=== PATIENT | male | born 1970 | race Hispanic/Latino ===

== ENCOUNTER 2021-10-15 12:31 | Inpatient (IN) | payer MEDICAID ==
[~2021-10-15] VITALS: Ht 175.3 cm; Wt 101.0 kg
[2021-10-15 13:11] LABS: BASOPHILS % (AUTO) 0.6 % (0.0-5.0); EOSINOPHILS % (AUTO) 5.6 % (0.0-8.0); HEMATOCRIT 37.6 % (42-54); LYMPHOCYTES % (AUTO) 24.3 % (21.0-51.0); MEAN CORPUSCULAR HEMOGLOBIN 31.4 pg (27.0-33.0); MEAN CORPUSCULAR HGB CONC 35.4 g/dL (32.0-36.0); MEAN CORPUSCULAR VOLUME 88.9 fL (79-99); MONOCYTES % (AUTO) 14.9 % (3.0-13.0); NEUTROPHILS % (AUTO) 54.4 % (40.0-77.0); PLATELET COUNT (AUTO) 111 K/uL (130-400); RED BLOOD CELL COUNT(AUTO) 4.23 MIL/uL (4.50-6.20); RED CELL DISTRIBUTION WIDTH 13.5 % (11.0-15.5); WHITE BLOOD COUNT (AUTO) 4.8 K/uL (4.8-10.8)
[2021-10-15 13:18] LABS: CREATININE 0.8 mg/dL (0.5-1.5); POTASSIUM 3.1 mmol/L (3.5-5.1)
[2021-10-15 13:23] LABS: ALBUMIN 2.4 g/dL (3.5-5.0); TOTAL PROTEIN, SERUM 7.7 g/dL (6.0-8.3)
[2021-10-15] MEDS ORDERED: 0.9%NACL 1000ML 1,000 ML IV ONE (14:00)
[2021-10-15] MEDS ORDERED: INSULIN HUMULIN R 100 UNIT/ML 3ML IV ONE (14:00)
[2021-10-15] MEDS ORDERED: POTASSIUM BICARB/CIT AC 25 MEQ TABLET.EFF PO ONE (14:00)
[2021-10-15] MEDS ORDERED: LIDOCAINE 1%-EPI 1:100,000 20 ML VIAL IJ ONE ×2 (14:08→14:46)
[2021-10-15] MEDS ORDERED: MORPHINE 4 MG SYG IVP ONE (14:30)
[2021-10-15] MEDS ORDERED: ONDANSETRON 4MG INJ IVP ONE (14:30)
[2021-10-15] MEDS ORDERED: VANCOMYCIN 1G VIAL IVPB ONE (14:30)
[2021-10-15] MEDS ORDERED: VANCOMYCIN 1G/250ML KIT 250 ML IV ONE (14:47)
[2021-10-15] MEDS ORDERED: LACTULOSE 20 GM/30 ML UDCUP PO PRN (16:00)
[2021-10-15] MEDS ORDERED: ACETAMINOPHEN 325 MG TAB PO PRN (16:00)
[2021-10-15] MEDS ORDERED: NITROGLYCERIN 0.4 MG SL TAB SL PRN (16:00)
[2021-10-15] MEDS ORDERED: LORAZEPAM 2 MG/ML 1 ML VIAL IVP PRN (16:00)
[2021-10-15] MEDS ORDERED: CHLORDIAZEPOXIDE HCL 25 MG CAP PO PRN (16:00)
[2021-10-15] MEDS ORDERED: DEXTROSE 50%-WATER 50 ML DISP.SYRIN IV PRN (16:00)
[2021-10-15] MEDS ORDERED: GLUCAGON 1MG KIT 1 MG ML IM PRN (16:00)
[2021-10-15] MEDS ORDERED: GUAIFENESIN-DM 200/20 MG 10 ML PO PRN (16:00)
[2021-10-15] MEDS ORDERED: PHARMACY COMMUNICATION MISC PRN (16:00)
[2021-10-15 16:10] LABS: INR 1.19 (0.85-1.15); PROTHROMBIN TIME 12.8 SEC (9.6-11.6)
[2021-10-15 16:11] LABS: PARTIAL THROMBOPLASTIN TIME 28.8 SEC (26.3-35.5)
[2021-10-15 16:20] LABS: MAGNESIUM 1.2 mg/dL (1.80-2.40); PHOSPHORUS 4.4 mg/dL (2.5-4.9)
[2021-10-15] MEDS ORDERED: HYDRALAZINE 20MG/ML VIAL IV PRN (16:30)
[2021-10-15] MEDS ORDERED: LISINOPRIL 40 MG TABLET PO SCH (16:30)
[2021-10-15 16:42] LABS: HEMOGLOBIN A1C 8.4 % (4.0-6.0)
[2021-10-15 17:07] LABS: APPEARANCE,URINE CLEAR (CLEAR); BILIRUBIN,URINE NEGATIVE (NEGATIVE); COLOR,URINE YELLOW (YELLOW); GLUCOSE, URINE (UA) >=1000 mg/dL (NEGATIVE); KETONES,URINE NEGATIVE (NEGATIVE); LEUKOCYTE ESTERASE ,URINE NEGATIVE (NEGATIVE); NITRATE,URINE NEGATIVE (NEGATIVE); OCCULT BLOOD,URINE TRACE-INTACT (NEGATIVE); PH,URINE 5.5 (5.0-8.0); PROTEIN,URINE NEGATIVE (NEGATIVE)
[2021-10-15 17:18] LABS: AMPHET/METH SCREEN,URINE NEGATIVE (NEGATIVE); BARBITURATE SCREEN, URINE NEGATIVE (NEGATIVE); BENZODIAZEPINES SCREEN,URINE NEGATIVE (NEGATIVE); CANNABINOID SCREEN,URINE NEGATIVE (NEGATIVE); COCAINE SCREEN,URINE POSITIVE (NEGATIVE); PHENCYCLIDINE SCREEN,URINE NEGATIVE (NEGATIVE)
[2021-10-15 17:19] LABS: BACTERIA,URINE None Seen /HPF (None Seen); RBC,URINE 0-1 /HPF (0-1); SQUAMOUS EPITHELIAL CELL,UR None Seen /HPF (0-2); WBC,URINE None Seen /HPF (0-1)
[2021-10-15] MEDS: CEFEPIME HCL 2 GM VIAL IVP SCH (17:24)
[2021-10-15] MEDS: THIAMINE HCL 100 MG, FOLIC ACID 1 MG, M.V.I. IV [ADULT] 10 ML in 0.9%NACL 1000ML 1,000 ML IV SCH (17:35)
[2021-10-15] MEDS: INSULIN HUMULIN R 100 UNIT/ML 3ML SQ SCH (20:39)
[2021-10-15] MEDS: ATORVASTATIN 40 MG TABLET PO SCH (21:00)
[2021-10-15] MEDS: FAMOTIDINE 20MG VIAL IV SCH (21:00)
[2021-10-15 22:15] VITALS: BP 153/86
[2021-10-15 22:31] LABS: HEPATITIS A IGM ANTIBODY Non-Reactive (Nonreactive); HEPATITIS B CORE IGM ANTIBODY Non-Reactive (Negative); HEPATITIS B SURFACE ANTIGEN Non-Reactive (Nonreactive); HEPATITIS C ANTIBODY Non-Reactive (Nonreactive)
[2021-10-15] MEDS: ACETAMINOPHEN 325 MG TAB PO PRN (22:54)
[2021-10-16] VITALS: BP 139/77
[2021-10-16] MEDS: CEFEPIME HCL 2 GM VIAL IVP SCH ×3 (00:28→16:22)
[2021-10-16 04:00] VITALS: BP 132/88
[2021-10-16 06:00] LABS: BASOPHILS % (AUTO) 0.8 % (0.0-5.0); EOSINOPHILS % (AUTO) 5.9 % (0.0-8.0); HEMATOCRIT 36.9 % (42-54); LYMPHOCYTES % (AUTO) 24.5 % (21.0-51.0); MEAN CORPUSCULAR HEMOGLOBIN 31.3 pg (27.0-33.0); MEAN CORPUSCULAR HGB CONC 34.7 g/dL (32.0-36.0); MEAN CORPUSCULAR VOLUME 90.2 fL (79-99); MONOCYTES % (AUTO) 11.9 % (3.0-13.0); NEUTROPHILS % (AUTO) 56.5 % (40.0-77.0); PLATELET COUNT (AUTO) 122 K/uL (130-400); RED BLOOD CELL COUNT(AUTO) 4.09 MIL/uL (4.50-6.20); RED CELL DISTRIBUTION WIDTH 13.6 % (11.0-15.5); WHITE BLOOD COUNT (AUTO) 5.2 K/uL (4.8-10.8)
[2021-10-16] MEDS: INSULIN HUMULIN R 100 UNIT/ML 3ML SQ SCH ×4 (06:24→21:54)
[2021-10-16 06:27] LABS: ALBUMIN 2.1 g/dL (3.5-5.0); CREATININE 0.7 mg/dL (0.5-1.5); POTASSIUM 3.1 mmol/L (3.5-5.1); TOTAL PROTEIN, SERUM 6.8 g/dL (6.0-8.3)
[2021-10-16 08:00] VITALS: BP 130/80
[2021-10-16] MEDS: LISINOPRIL 40 MG TABLET PO SCH (09:00)
[2021-10-16] MEDS: AMLODIPINE 5 MG TAB PO SCH (09:00)
[2021-10-16] MEDS: ENOXAPARIN SODIUM 40 MG/0.4 ML SYRINGE SQ SCH (09:00)
[2021-10-16] MEDS: FAMOTIDINE 20MG VIAL IV SCH ×2 (10:36→21:01)
[2021-10-16 12:00] VITALS: BP 145/97
[2021-10-16 16:00] VITALS: BP 143/84
[2021-10-16] MEDS: THIAMINE HCL 100 MG, FOLIC ACID 1 MG, M.V.I. IV [ADULT] 10 ML in 0.9%NACL 1000ML 1,000 ML IV SCH (16:27)
[2021-10-16] MEDS: KCL 20 MEQ ERTAB PO PRN ×2 (16:27→19:31)
[2021-10-16] MEDS ORDERED: POTASSIUM CHLORIDE 10% ELIXIR 20 MEQ/15 ML UDCUP PO PRN (16:30)
[2021-10-16] MEDS: ACETAMINOPHEN 325 MG TAB PO PRN (16:45)
[2021-10-16 19:00] VITALS: BP 124/70
[2021-10-16] MEDS: ATORVASTATIN 40 MG TABLET PO SCH (21:04)
[2021-10-16] MEDS: HYDROCODONE/ACETAMINOPHEN 5/325 MG TAB PO PRN (21:04)
[2021-10-17] VITALS (7 sets, daily range): BP systolic 126–153; BP diastolic 64–88
[2021-10-17] MEDS: CEFEPIME HCL 2 GM VIAL IVP SCH ×4 (01:01→23:42)
[2021-10-17] MEDS ORDERED: BACL10TA PO (02:51)
[2021-10-17] MEDS ORDERED: SPIR25TA6 PO (02:55)
[2021-10-17] MEDS ORDERED: POTA-79 PO (02:55)
[2021-10-17 05:07] LABS: BASOPHILS % (AUTO) 0.4 % (0.0-5.0); EOSINOPHILS % (AUTO) 3.2 % (0.0-8.0); HEMATOCRIT 37.1 % (42-54); MEAN CORPUSCULAR HEMOGLOBIN 31.6 pg (27.0-33.0); MEAN CORPUSCULAR HGB CONC 34.8 g/dL (32.0-36.0); MEAN CORPUSCULAR VOLUME 90.9 fL (79-99); MONOCYTES % (AUTO) 13.3 % (3.0-13.0); NEUTROPHILS % (AUTO) 61.7 % (40.0-77.0); PLATELET COUNT (AUTO) 125 K/uL (130-400); RED BLOOD CELL COUNT(AUTO) 4.08 MIL/uL (4.50-6.20); RED CELL DISTRIBUTION WIDTH 13.6 % (11.0-15.5); WHITE BLOOD COUNT (AUTO) 5.7 K/uL (4.8-10.8)
[2021-10-17 05:14] LABS: ALBUMIN 2.3 g/dL (3.5-5.0); CREATININE 0.7 mg/dL (0.5-1.5); TOTAL PROTEIN, SERUM 7.2 g/dL (6.0-8.3)
[2021-10-17 05:47] LABS: POTASSIUM 2.9 mmol/L (3.5-5.1)
[2021-10-17] MEDS: LIDOCAINE HCL-MPF 1% 2ML VIAL IV PRN ×2 (06:13→17:26)
[2021-10-17] MEDS: POTASSIUM CHLORIDE 20MEQ/100ML 100 ML IV PRN ×2 (06:14→17:26)
[2021-10-17] MEDS: INSULIN HUMULIN R 100 UNIT/ML 3ML SQ SCH ×4 (06:17→21:24)
[2021-10-17] MEDS: AMLODIPINE 5 MG TAB PO SCH (08:13)
[2021-10-17] MEDS: FAMOTIDINE 20MG VIAL IV SCH ×2 (08:13→20:07)
[2021-10-17] MEDS: LISINOPRIL 40 MG TABLET PO SCH (08:14)
[2021-10-17] MEDS: ENOXAPARIN SODIUM 40 MG/0.4 ML SYRINGE SQ SCH (08:14)
[2021-10-17] MEDS: MAGNESIUM 2GM PREMIX 50ML 50 ML IV PRN (10:15)
[2021-10-17] MEDS: HYDROCODONE/ACETAMINOPHEN 5/325 MG TAB PO PRN (10:17)
[2021-10-17] MEDS: THIAMINE HCL 100 MG, FOLIC ACID 1 MG, M.V.I. IV [ADULT] 10 ML in 0.9%NACL 1000ML 1,000 ML IV SCH (18:06)
[2021-10-17] MEDS: ATORVASTATIN 40 MG TABLET PO SCH (20:07)
[2021-10-18] MEDS: HYDROCODONE/ACETAMINOPHEN 5/325 MG TAB PO PRN ×2 (02:07→09:49)
[2021-10-18 03:07] VITALS: BP 150/87
[2021-10-18 05:30] LABS: BASOPHILS % (AUTO) 0.7 % (0.0-5.0); EOSINOPHILS % (AUTO) 4.3 % (0.0-8.0); HEMATOCRIT 36.9 % (42-54); LYMPHOCYTES % (AUTO) 20.3 % (21.0-51.0); MEAN CORPUSCULAR HEMOGLOBIN 31.4 pg (27.0-33.0); MEAN CORPUSCULAR HGB CONC 34.7 g/dL (32.0-36.0); MEAN CORPUSCULAR VOLUME 90.7 fL (79-99); MONOCYTES % (AUTO) 12.7 % (3.0-13.0); NEUTROPHILS % (AUTO) 61.7 % (40.0-77.0); PLATELET COUNT (AUTO) 125 K/uL (130-400); RED BLOOD CELL COUNT(AUTO) 4.07 MIL/uL (4.50-6.20); RED CELL DISTRIBUTION WIDTH 13.5 % (11.0-15.5); WHITE BLOOD COUNT (AUTO) 5.8 K/uL (4.8-10.8)
[2021-10-18 05:39] LABS: ALBUMIN 2.2 g/dL (3.5-5.0); CREATININE 0.6 mg/dL (0.5-1.5); TOTAL PROTEIN, SERUM 7.1 g/dL (6.0-8.3)
[2021-10-18] MEDS: INSULIN HUMULIN R 100 UNIT/ML 3ML SQ SCH ×4 (05:56→20:59)
[2021-10-18] MEDS: LIDOCAINE HCL-MPF 1% 2ML VIAL IV PRN (06:10)
[2021-10-18] MEDS: POTASSIUM CHLORIDE 20MEQ/100ML 100 ML IV PRN (06:11)
[2021-10-18 07:12] VITALS: BP 138/79
[2021-10-18] MEDS: FAMOTIDINE 20MG VIAL IV SCH ×2 (09:29→20:52)
[2021-10-18] MEDS: AMLODIPINE 5 MG TAB PO SCH (09:29)
[2021-10-18] MEDS: LISINOPRIL 40 MG TABLET PO SCH (09:30)
[2021-10-18] MEDS: ENOXAPARIN SODIUM 40 MG/0.4 ML SYRINGE SQ SCH (09:35)
[2021-10-18] MEDS: CEFEPIME HCL 2 GM VIAL IVP SCH ×3 (09:48→23:34)
[2021-10-18 12:07] VITALS: BP 151/93
[2021-10-18] MEDS: MAGNESIUM 2GM PREMIX 50ML 50 ML IV PRN (12:14)
[2021-10-18] MEDS ORDERED: MORPHINE 4 MG SYG ONE (15:13)
[2021-10-18] MEDS ORDERED: MORPHINE 4 MG SYG IVP ONE (16:00)
[2021-10-18 16:18] VITALS: BP 137/77
[2021-10-18 20:10] VITALS: BP 122/71
[2021-10-18] MEDS: ATORVASTATIN 40 MG TABLET PO SCH (20:52)
[2021-10-18] MEDS: KCL 20 MEQ ERTAB PO PRN ×2 (20:53→23:35)
[2021-10-18 23:40] VITALS: BP 124/83
[2021-10-19] MEDS: KCL 20 MEQ ERTAB PO PRN (02:32)
[2021-10-19 03:14] VITALS: BP 131/75
[2021-10-19 05:08] LABS: HEMATOCRIT 38.5 % (42-54); MEAN CORPUSCULAR HEMOGLOBIN 31.7 pg (27.0-33.0); MEAN CORPUSCULAR HGB CONC 34.5 g/dL (32.0-36.0); MEAN CORPUSCULAR VOLUME 91.7 fL (79-99); RED BLOOD CELL COUNT(AUTO) 4.2 MIL/uL (4.50-6.20); RED CELL DISTRIBUTION WIDTH 13.7 % (11.0-15.5); WHITE BLOOD COUNT (AUTO) 6.4 K/uL (4.8-10.8)
[2021-10-19 05:20] LABS: CREATININE 0.7 mg/dL (0.5-1.5); MAGNESIUM 1.4 mg/dL (1.80-2.40); POTASSIUM 3.6 mmol/L (3.5-5.1)
[2021-10-19] MEDS: INSULIN HUMULIN R 100 UNIT/ML 3ML SQ SCH ×2 (06:00→11:30)
[2021-10-19] MEDS: MAGNESIUM 2GM PREMIX 50ML 50 ML IV PRN (06:03)
[2021-10-19 07:30] VITALS: BP 135/82
[2021-10-19] MEDS: CEFEPIME HCL 2 GM VIAL IVP SCH (08:18)
[2021-10-19] MEDS: AMLODIPINE 5 MG TAB PO SCH (08:18)
[2021-10-19] MEDS: LISINOPRIL 40 MG TABLET PO SCH (08:18)
[2021-10-19] MEDS: HYDROCODONE/ACETAMINOPHEN 5/325 MG TAB PO PRN ×2 (08:19→14:25)
[2021-10-19] MEDS: SODIUM HYPOCHLORITE 0.25% [HALF STRENGTH] 473 ML TOPICAL SOLN TP SCH ×2 (08:28→14:24)
[2021-10-19] MEDS: FAMOTIDINE 20MG VIAL IV SCH (08:28)
[2021-10-19] MEDS: ENOXAPARIN SODIUM 40 MG/0.4 ML SYRINGE SQ SCH (08:29)
[2021-10-19 10:13] LABS: OPIATES SCREEN URINE Positive ng/mL (Cutoff=300)
[2021-10-19 11:00] VITALS: BP 91/54
[2021-10-19] MEDS ORDERED: THIAMINE HCL 100 MG/ML 2ML VIAL IVP SCH (11:30)
[2021-10-19] MEDS ORDERED: LEVOFLOXACIN 750 MG TABLET PO SCH (11:30)
[2021-10-19] MEDS ORDERED: THIA100T91 PO (12:51)
[2021-10-19] MEDS ORDERED: LEVO750T46 PO (12:51)
[2021-10-20] MEDS ORDERED: THIAMINE HCL 100 MG TABLET PO SCH (09:00)
== END 2021-10-19 13:21 | disposition home or self-care (01) | DRG 383 ==
LOC: EDH 12:31 → EDHIP 12:32 → 3DH 21:43
PROVIDERS: ADMIT Hospitalist; ATTEND Hospitalist
PROC: 0Y900ZZ Drainage of Right Buttock, Open Approach (ICD-10-PCS; principal; 2021-10-18)
DX: L02.31 Cutaneous abscess of buttock (principal); I11.0 Hypertensive heart disease with heart failure; I50.9 Heart failure, unspecified; E11.65 Type 2 diabetes mellitus with hyperglycemia; E78.5 Hyperlipidemia, unspecified; E83.42 Hypomagnesemia; B96.1 Klebsiella pneumoniae [K. pneumoniae] as the cause of diseases classified elsewhere; Z20.822 Contact with and (suspected) exposure to COVID-19; E87.6 Hypokalemia; E86.0 Dehydration; F10.10 Alcohol abuse, uncomplicated; F14.10 Cocaine abuse, uncomplicated; W57.XXXA Bitten or stung by nonvenomous insect and other nonvenomous arthropods, initial encounter; Z91.19 Patient's noncompliance with other medical treatment and regimen; Z51.5 Encounter for palliative care; Z83.3 Family history of diabetes mellitus; Y93.89 Activity, other specified; Y92.89 Other specified places as the place of occurrence of the external cause; Y99.8 Other external cause status
CPT/HCPCS: 36415; 80048; 80053; 80074; 80305; 81001; 82948; 83036; 83735; 83880; 84100; 84484; 85025; 85027; 85610; 85730; 86701; 87070; 87076; 87077; 87186; 87390; 87635; 93005; 93306; 93356; 99291; G0378; J0692; J1650; J1815; J2270; J2405; J3370; J3411; J3475; J3480; J3490; J7030

== ENCOUNTER → 2021-10-21 | Outpatient (CLI) | payer MEDICAID ==
[~2021-10-21] MED LIST: BACL10TA PO; LEVO750T68 PO; LIDOCAINE HCL 4% LTA SOL 4 ML VIAL TP ONE; POTA-79 PO; SPIR25TA6 PO; THIA100T91 PO
== END | disposition home or self-care (01) ==
LOC: WHH 08:42
PROVIDERS: ATTEND Family Medicine
DX: L02.31 Cutaneous abscess of buttock (principal); S31.819A Unspecified open wound of right buttock, initial encounter; E11.65 Type 2 diabetes mellitus with hyperglycemia; I11.0 Hypertensive heart disease with heart failure; I50.9 Heart failure, unspecified; E78.5 Hyperlipidemia, unspecified; K74.60 Unspecified cirrhosis of liver; F17.200 Nicotine dependence, unspecified, uncomplicated; F12.10 Cannabis abuse, uncomplicated; X58.XXXA Exposure to other specified factors, initial encounter; Y93.89 Activity, other specified; Y92.89 Other specified places as the place of occurrence of the external cause; Y99.8 Other external cause status
CPT/HCPCS: 11042; A6248; A4450

== ENCOUNTER → 2021-11-04 | Outpatient (CLI) | payer MEDICAID | END | disposition home or self-care (01) | LOC: WHH 08:45 | PROVIDERS: ATTEND Family Medicine | DX: T81.89XD Other complications of procedures, not elsewhere classified, subsequent encounter (principal); L02.31 Cutaneous abscess of buttock; S31.819D Unspecified open wound of right buttock, subsequent encounter; E11.65 Type 2 diabetes mellitus with hyperglycemia; I11.0 Hypertensive heart disease with heart failure; I50.9 Heart failure, unspecified; E78.5 Hyperlipidemia, unspecified; K74.60 Unspecified cirrhosis of liver; F17.200 Nicotine dependence, unspecified, uncomplicated; F12.10 Cannabis abuse, uncomplicated; X58.XXXD Exposure to other specified factors, subsequent encounter; Y83.8 Other surgical procedures as the cause of abnormal reaction of the patient, or of later complication, without mention of misadventure at the time of the procedure | CPT/HCPCS: 99214; A6248 ==

== ENCOUNTER → 2021-11-18 | Outpatient (CLI) | payer MEDICAID | END | disposition home or self-care (01) | LOC: WHH 08:54 | PROVIDERS: ATTEND Family Medicine | DX: T81.89XD Other complications of procedures, not elsewhere classified, subsequent encounter (principal); L02.31 Cutaneous abscess of buttock; S31.819D Unspecified open wound of right buttock, subsequent encounter; E11.65 Type 2 diabetes mellitus with hyperglycemia; I11.0 Hypertensive heart disease with heart failure; I50.9 Heart failure, unspecified; E78.5 Hyperlipidemia, unspecified; K74.60 Unspecified cirrhosis of liver; F17.200 Nicotine dependence, unspecified, uncomplicated; F12.10 Cannabis abuse, uncomplicated; X58.XXXD Exposure to other specified factors, subsequent encounter; Y83.8 Other surgical procedures as the cause of abnormal reaction of the patient, or of later complication, without mention of misadventure at the time of the procedure | CPT/HCPCS: 99214; A6248; A4450 ==

== ENCOUNTER 2021-12-09 09:23 | Outpatient (CLI) | payer MEDICAID ==
[~2021-12-09 09:23] MED LIST changes: -LIDOCAINE HCL 4% LTA SOL 4 ML VIAL TP ONE
== END 2021-12-09 15:42 | disposition home or self-care (01) ==
LOC: WHH 09:23
PROVIDERS: ATTEND Family Medicine
DX: T81.89XD Other complications of procedures, not elsewhere classified, subsequent encounter (principal); L02.31 Cutaneous abscess of buttock; S31.819D Unspecified open wound of right buttock, subsequent encounter; E11.65 Type 2 diabetes mellitus with hyperglycemia; I11.0 Hypertensive heart disease with heart failure; I50.9 Heart failure, unspecified; E78.5 Hyperlipidemia, unspecified; K74.60 Unspecified cirrhosis of liver; F17.200 Nicotine dependence, unspecified, uncomplicated; F12.10 Cannabis abuse, uncomplicated; X58.XXXD Exposure to other specified factors, subsequent encounter; Y83.8 Other surgical procedures as the cause of abnormal reaction of the patient, or of later complication, without mention of misadventure at the time of the procedure
CPT/HCPCS: 99214